=== PATIENT | male | born 1950 | race Caucasian/White ===

== ENCOUNTER → 2022-05-11 14:32 | Outpatient (BNVA) | payer MEDICARE, OTHER, SELFPAY | PROVIDERS: Family Provider Family Medicine; Visit Provider Surgery | DX: R19.4 Change in bowel habit (principal) | CPT/HCPCS: 99024 ==

== ENCOUNTER 2022-08-17 05:54 | Day surgery (SDC) | payer MEDICARE, OTHER, SELFPAY ==
[2022-08-15 09:28] VITALS: BMI 34.9
[2022-08-17 06:25] VITALS: BP 162/90; PULSE 73; RESP 18; TEMP 36.3; O2SAT 93
[2022-08-17] MEDS: sodium chloride 0.9% 1,000 ML 30 ML IV (06:40)
--- NOTE | 2022-08-17 07:27 | P.HP_ITS ---
Same Day Surgery H&P Indication for Procedure/HPI DATE OF PROCEDURE: August 17, 2022 CHIEF COMPLAINT/INDICATIONFOR SURGICAL PROCEDURE: Screening colonoscopy PREOP DIAGNOSIS: Screening colonoscopy PLANNED PROCEDURE: Operation Date: 08/17/22 08:00 Proposed Procedures p Colonoscopy 65177,R19.4(Not Applicable) - Da Fournier MD 08/17/2022 Patient comes today for screening colonoscopy. ROS All systems have been reviewed negative except as for the above or per problem list. Medications/Allergies* Home Medications Medication Instructions Recorded Confirmed Type atorvastatin 10 mg tablet 10 mg PO DAILY 05/11/22 08/15/22 History losartan 50 mg tablet 50 mg PO DAILY 05/11/22 08/15/22 History omeprazole 20 mg capsule,delayed 20 mg PO DAILY 05/11/22 08/15/22 History release Allergies/Adverse Reactions Allergy/AdvReac Type Severity Reaction Status Date / Time oxycodone [From Percocet] Allergy ALGY-Hives Verified 08/17/22 07:28 Current Medications: Generic Name Dose Route Start Last Admin Trade Name Freq PRN Reason Stop Dose Admin Sodium Chloride 1,000 mls @ 30 mls/hr 08/17/22 06:15 08/17/22 06:40 Sodium Chloride 0.9% IV 08/18/22 06:14 30 mls/hr .Q24H FRANNIE Administration Pertinent Exam Findings alert, oriented x 3, regular rate & rhythm and procedure specific exam findings (Abdominal exam nontender nondistended soft) Recommendations Surgery/Procedure today (Colonoscopy with possible biopsy) Coding Level of Care Code Acute [employer] for [place] [place]
--- NOTE | 2022-08-17 07:57 | ANES.PREANE2 ---
Pre-Anesthetic Assessment Height/Weight: Height 1.65 m Weight 95.254 kg Temp Pulse Resp BP Pulse Ox O2 Del Method 97.4 F L 73 18 162/90 93 08/17/22 06:25 08/17/22 06:25 08/17/22 06:25 08/17/22 06:25 08/17/22 06:25 08/17/22 06:25 Preop Diagnosis: Screening colonoscopy Operation Date: 08/17/22 08:00 Proposed Procedures p Colonoscopy 92806,R19.4(Not Applicable) - Da Fournier MD Familial anesthetic complications: none Was Beta Stanford taken within 24 hours: N/A Was Clonidine taken within 24 hours: N/A Last intake: Intake Last Liquid Date 08/16/22 Last Liquid Time 18:00 Last Solid Date 08/16/22 Last Solid Time 06:00 Last Intake: 18:00 Social No alcohol and No tobacco Exam alert, oriented x 3, clear to auscultation bilaterally and regular rate & rhythm Airway Submandibular: within normal limits Cervical ROM: within normal limits Mallampati: Class III Dentition: full Pulmonary Exertional Dyspnea (for years ) CV/HEM Coronary Artery Disease, Hypertension and Myocardial Infarction (CABG 2015. No CP since) None reported Hepatic None reported GI Gastroesophageal Reflux Disease (controlled) Metabolic None reported Musc/skel Lower Back Pain and Osteoarthritis/DJD Neuropsych None reported Anesthetic Plan ASA status: 3 Anesthesia: MAC Risk of > 500 ml blood loss (7ml/kg in children): No Medications/Allergies Home Medications Medication Instructions Recorded Confirmed Last Taken Type atorvastatin 10 mg tablet 10 mg PO DAILY 05/11/22 08/15/22 08/16/22 History losartan 50 mg tablet 50 mg PO DAILY 05/11/22 08/15/22 08/16/22 History omeprazole 20 mg capsule,delayed 20 mg PO DAILY 05/11/22 08/15/22 08/16/22 History release Allergies Allergy/AdvReac Type Severity Reaction Status Date / Time oxycodone [From Percocet] Allergy ALGY-Hives Verified 08/17/22 07:28 Current Medications Generic Name Dose Route Start Last Admin Trade Name Freq PRN Reason Stop Dose Admin Sodium Chloride 1,000 mls @ 30 mls/hr 08/17/22 06:15 08/17/22 06:40 Sodium Chloride 0.9% IV 08/18/22 06:14 30 mls/hr .Q24H FRANNIE Administration Data Anesthesia Cardiac Studies: No Data to Display
[2022-08-17 08:35] VITALS: BP 110/73; PULSE 64; RESP 18; O2SAT 93
--- NOTE | 2022-08-17 15:46 | ANE.PACU2 ---
Inpatient post-anesthesia follow up: Airway intact: Yes Vital signs: Temperature 97.4 F Pulse Rate 64 Respiratory Rate 18 Blood Pressure 110/73 Pulse Oximetry 93 Oxygen Delivery Me thod Room Air Oxygen Flow Rate Fraction of Inspir ed Oxygen Hydration adequate: Yes Nausea and vomiting: No Pain level: 1 Mental status: Baseline
== END 2022-08-17 08:59 | disposition home or self-care (01) ==
PROVIDERS: PCP Nurse Practitioner Family; Visit Provider Surgery
PROC: 0DJD8ZZ Inspection of Lower Intestinal Tract, Via Natural or Artificial Opening Endoscopic (ICD-10-PCS; CPT 45378; principal; 2022-08-17 08:00)
DX: Z12.11 Encounter for screening for malignant neoplasm of colon (principal); I25.10 Atherosclerotic heart disease of native coronary artery without angina pectoris; I10 Essential (primary) hypertension; I25.2 Old myocardial infarction; Z95.1 Presence of aortocoronary bypass graft; K21.9 Gastro-esophageal reflux disease without esophagitis
CPT/HCPCS: 43239; 45378; G0121; J2704; J7030

== ENCOUNTER 2022-12-18 06:13 | Outpatient (CLI) | payer MEDICARE, OTHER, SELFPAY ==
--- NOTE | 2022-12-18 06:24 | US_ITS ---
WS: [id number] TESTICULAR ULTRASOUND HISTORY: LEFT testicular lump and pain. COMPARISON: None available. TECHNIQUE: Real-time and color Doppler imaging or utilized to perform a testicular ultrasound. Right testicle: 4.5 cm x 3.8 cm x 2.4 cm. Normal size and echogenicity. No mass or torsion. Normal color Doppler is present throughout. Systolic and diastolic velocities are both present. No significant hydrocele. Right epididymis: Normal epididymis with no increased vascularity. Left testicle: 4.1 cm x 3.4 cm x 2.0 cm. Normal size and echogenicity. No mass or torsion. Normal color Doppler is present throughout. Systolic and diastolic velocities are both present. No significant hydrocele. Left epididymis: LEFT spermatocele measures 7 x 6 x 7 mm. Palpable area LEFT testicle corresponds to a very minimal dilatation of the pampiniform plexus. No do cumented varicocele at this time. US/US scrotum [id number] IMPRESSION: 1. No testicular mass or torsion. 2. Small LEFT spermatocele. 3. No hydrocele.
== END 2022-12-18 06:14 | disposition home or self-care (01) ==
PROVIDERS: PCP Nurse Practitioner Family; Visit Provider Nurse Practitioner Family
DX: N64.4 Mastodynia (principal); N43.40 Spermatocele of epididymis, unspecified
CPT/HCPCS: 76870

== ENCOUNTER → 2023-01-08 12:27 | Outpatient (BNVA) | payer MEDICARE, OTHER, SELFPAY | PROVIDERS: PCP Nurse Practitioner Family; Visit Provider Internal Medicine | DX: I25.10 Atherosclerotic heart disease of native coronary artery without angina pectoris (principal); I10 Essential (primary) hypertension; R07.89 Other chest pain; Z79.82 Long term (current) use of aspirin; R06.00 Dyspnea, unspecified | CPT/HCPCS: 99204 ==

== ENCOUNTER 2023-01-29 14:46 | Outpatient (CLI) | payer MEDICARE, OTHER, SELFPAY ==
--- NOTE | 2023-01-29 15:15 | USCV_ITS ---
Mark Anthony Lofton Age: 72 Gender: M : 1950 Exam Date: 01/29/2023 15:03 Ordering Phys: Lambert Hauser M.D ([email or web address]) Technologist: Exam Location: [facility] [place] Indication: hx of cad BP: 125 / 71 HR: 67 Rhythm: Sinus Technical Quality: Adequate MEASUREMENTS (Male / Female) Normal Values 2D ECHO LV Diastolic Diameter PLAX 4.3 cm 4.2 - 5.9 / 3.9 - 5.3 cm LV Systolic Diameter PLAX 3.0 cm IVS Diastolic Thickness 1.2 cm 0.6 - 1.0 / 0.6 - 0.9 cm IVS Systolic Thickness 1.8 cm LVPW Diastolic Thickness 1.4 cm 0.6 - 1.0 / 0.6 - 0.9 cm LVPW Systolic Thickness 1.6 cm LVOT Diameter 2.0 cm LV Ejection Fraction 2D Teich 44.2 % LV Ejection Fraction MOD 2C 63.9 % LV Ejection Fraction 2C AL 67.0 % LA Diameter 4.1 cm Aorta at Sinotubular Diameter 2.4 cm IVC Diameter 1.3 cm M-MODE Aortic Annulus Diameter 3.9 cm LA Ao Ratio MM 1.1 MV E Point Septal Separation 1.2 cm DOPPLER AV Peak Velocity 190.0 cm/s LVOT Peak Velocity 93.0 cm/s AV Area Cont Eq vti 2.0 cm squared AV Area Cont Eq pk 1.6 cm squared MV Area PHT 3.3 cm squared Mitral E to A Ratio 1.4 MV E' Velocity 54.0 cm/s Mitral E to MV E' Ratio 13.6 Mitral E to LV E' Lateral Ratio 17.0 Mitral E to LV E' Septal Ratio 11.3 TR Peak Velocity 186.7 cm/s TR Peak Gradient 13.9 mmHg TV Peak E Velocity 59.0 cm/s Right Atrial Pressure 3.0 mmHg Pulmonary Artery Systolic Pressu 16.9 mmHg RV Acceleration Time 0.1 s FINDINGS Left Ventricle Left ventricle is normal size. LV systolic function is normal with EF of 55 to 60%. No regional wall motion abnormalities are seen. Right Ventricle Normal in size and function Right Atrium Normal in size Left Atrium Normal in size Mitral Valve Structurally normal mitral valve. Trace mitral regurgitation. Aortic Valve Structurally normal aortic valve. No signfiicant stenosis. Mild aortic regurgitation. Tricuspid Valve Mild tricuspid regurgitation. RVSP is normal. Pulmonic Valve Not well-visualized Pericardium Normal Aorta Normal in size IVC Appears to be normal CONCLUSIONS LV systolic function is normal with EF of 55 to 60%. No regional wall motion abnormalities are seen Trace mitral regurgitation Mild aortic regurgitation Mild tricuspid regurgitation Compared to prior echocardiogram from 2015, no significant changes are seen. Lambert Hauser MD (Electronically Signed) Final Date: 09 Feb 2023 15:50 S
== END 2023-01-29 14:47 | disposition home or self-care (01) ==
LOC: RAD 14:50
PROVIDERS: PCP Nurse Practitioner Family; Visit Provider Internal Medicine
DX: R06.02 Shortness of breath (principal); R07.9 Chest pain, unspecified; I25.10 Atherosclerotic heart disease of native coronary artery without angina pectoris; I08.2 Rheumatic disorders of both aortic and tricuspid valves
CPT/HCPCS: 93306

== ENCOUNTER → 2023-07-09 12:42 | Outpatient (BNVA) | payer MEDICARE, OTHER, SELFPAY | PROVIDERS: PCP Nurse Practitioner Family; Visit Provider Internal Medicine | DX: I10 Essential (primary) hypertension (principal); I25.10 Atherosclerotic heart disease of native coronary artery without angina pectoris | CPT/HCPCS: 99214 ==

== ENCOUNTER → 2024-04-07 14:32 | Outpatient (BNVA) | payer MEDICARE, OTHER, SELFPAY | PROVIDERS: PCP Nurse Practitioner Family; Visit Provider Internal Medicine | DX: I10 Essential (primary) hypertension (principal); I25.10 Atherosclerotic heart disease of native coronary artery without angina pectoris; Z87.891 Personal history of nicotine dependence | CPT/HCPCS: 99214 ==

== ENCOUNTER → 2025-01-05 11:30 | Outpatient (BNVA) | payer MEDICARE, OTHER, SELFPAY | PROVIDERS: PCP Nurse Practitioner Family; Visit Provider Internal Medicine | DX: I25.10 Atherosclerotic heart disease of native coronary artery without angina pectoris (principal); I10 Essential (primary) hypertension; Z79.82 Long term (current) use of aspirin; Z87.891 Personal history of nicotine dependence | CPT/HCPCS: 99213 ==